=== PATIENT | male | born 1990 | race Caucasian/White ===

== ENCOUNTER 2017-05-02 07:47 | Emergency (ER) | payer OTHER ==
[~2017-05-02] VITALS: Ht 188 cm; Wt 95.5 kg
[2017-05-02] MEDS ORDERED: ISOVUE-370 76% 100ML VIAL (Q9967) ONE (07:48)
[2017-05-02] MEDS ORDERED: ATEN25TA (08:01)
[2017-05-02] MEDS ORDERED: SERT-155 (08:01)
[2017-05-02] MEDS ORDERED: ASPIRIN 81 MG CHEW TABLET PO ONE (08:30)
[2017-05-02 09:01] LABS: BASO # 0.1 10^3/uL (0.0-0.2); EOS # 0.1 10^3/uL (0.0-0.50); IMMATURE GRANULOCYTE % 0.4 % (0-0); LYMPH # 1.6 10^3/uL (1.5-6.5); LYMPH % 32.1 % (24.0-44.0); MEAN CORPUSCULAR HEMOGLOBIN 28.9 pg (27.0-33.0); MEAN CORPUSCULAR HGB CONC 33.9 g/dl (32.0-36.5); MEAN CORPUSCULAR VOLUME 85.1 fl (80.0-96.0); MONO # 0.4 10^3/uL (0.0-0.8); MONO % 7.8 % (0.0-5.0); NEUTROPHILS # 2.8 10^3/uL (1.8-7.7); NEUTROPHILS % 57.7 % (36.0-66.0); PLATELET COUNT, AUTOMATED 260 10^3/uL (150-450); RED CELL DISTRIBUTION WIDTH 11.8 % (11.5-14.5); WHITE BLOOD COUNT 4.9 10^3/uL (4.0-10.0)
[2017-05-02 09:29] LABS: ALBUMIN 4.1 GM/DL (3.2-5.2); ALBUMIN/GLOBULIN RATIO 1.41 (1.00-1.93); ALKALINE PHOSPHATASE 102 U/L (45-117); ALT/SGPT 34 U/L (12-78); ANION GAP 7 MEQ/L (8-16); AST/SGOT 24 U/L (15-37); BILIRUBIN,DIRECT 0.1 MG/DL (0.0-0.2); BILIRUBIN,TOTAL 0.4 MG/DL (0.2-1.0); BLOOD UREA NITROGEN 15 MG/DL (7-18); CALCIUM LEVEL 8.9 MG/DL (8.5-10.1); CARBON DIOXIDE LEVEL 27 MEQ/L (21-32); CHLORIDE LEVEL 107 MEQ/L (98-107); CREATININE FOR GFR 1.14 MG/DL (0.70-1.30); GLOMERULAR FILTRATION RATE > 60.0 (>60); GLUCOSE, FASTING 98 MG/DL (70-105); POTASSIUM SERUM 4.2 MEQ/L (3.5-5.1); SODIUM LEVEL 141 MEQ/L (136-145)
--- NOTE | 2017-05-02 10:40 | REP ---
CT ANGIO CHEST: CT angiogram of the chest is performed. TECHNIQUE: Axial contrast enhanced images from the thoracic inlet to the upper abdomen using 100 mL Isovue 370 intravenous contrast material with multiplanar reformations. There is an ill-defined 5 mm opacity in the right upper lobe, which is somewhat oval in shape and probably represents focal fibroatelectatic change. No consolidating infiltrate is seen in either lung. There is no CT evidence of a pulmonary embolism. There is no thoracic aortic aneurysm or dissection. The heart is normal in size. There is no pleural or pericardial effusion. There is no mediastinal or hilar adenopathy. The visualized upper abdominal structures are unremarkable. IMPRESSION: No CT evidence of pulmonary embolism. There appears to be mild focal fibroatelectatic change in the right upper lobe. Signed by Rolando Mak MD 05/02/2017 07:50 P
[2017-05-02 12:38] VITALS: BP 127/67
--- NOTE | 2017-05-02 20:46 | ECGEPIP ---
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
--- NOTE | 2017-05-02 20:46 | ECGEPIP ---
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
--- NOTE | 2017-05-02 20:53 | ECGEPIP ---
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
== END 2017-05-02 12:51 | disposition home or self-care (01) ==
LOC: M ED 07:47
DX: R07.9 Chest pain, unspecified (principal); R00.2 Palpitations; R06.02 Shortness of breath; R11.0 Nausea; F41.9 Anxiety disorder, unspecified; F33.9 Major depressive disorder, recurrent, unspecified; I34.0 Nonrheumatic mitral (valve) insufficiency; I49.3 Ventricular premature depolarization; Z82.49 Family history of ischemic heart disease and other diseases of the circulatory system; Z79.899 Other long term (current) drug therapy
CPT/HCPCS: 36415; 71275; 80048; 80076; 82550; 82553; 83880; 85025; 93005; 93041; 94760; 99285; Q9967

== ENCOUNTER 2017-05-08 19:07 | Emergency (ER) | payer OTHER ==
[~2017-05-08] VITALS: Ht 188 cm; Wt 95.5 kg
[~2017-05-08 19:07] MED LIST: ATEN25TA; SERT-155
[2017-05-08 22:44] VITALS: BP 132/58
--- NOTE | 2017-05-10 05:59 | ECGEPIP ---
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
== END 2017-05-08 22:45 | disposition home or self-care (01) ==
LOC: M ED 19:07
DX: R07.89 Other chest pain (principal); R06.02 Shortness of breath; F33.9 Major depressive disorder, recurrent, unspecified; I34.0 Nonrheumatic mitral (valve) insufficiency; I49.3 Ventricular premature depolarization

== ENCOUNTER 2017-06-04 07:25 | Emergency (ER) | payer OTHER ==
[~2017-06-04] VITALS: Ht 188 cm; Wt 97.6 kg
[2017-06-04 08:17] VITALS: BP 120/63
--- NOTE | 2017-06-04 09:18 | ECGEPIP ---
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
== END 2017-06-04 09:23 | disposition home or self-care (01) ==
LOC: M ED 07:25
DX: R07.9 Chest pain, unspecified (principal)

== ENCOUNTER 2018-03-16 02:32 | Emergency (ER) | payer OTHER ==
[2018-03-16 03:36] LABS: ANION GAP 9 MEQ/L (8-16); BLOOD UREA NITROGEN 17 MG/DL (7-18); CALCIUM LEVEL 8.9 MG/DL (8.5-10.1); CARBON DIOXIDE LEVEL 26 MEQ/L (21-32); CHLORIDE LEVEL 108 MEQ/L (98-107); CK-MB VALUE MASS 2.1 NG/ML (<3.6); CPK CREATINE PHOSPHOKINASE 393 U/L (39-308); CREATININE FOR GFR 1.11 MG/DL (0.70-1.30); GLOMERULAR FILTRATION RATE > 60.0 (>60); GLUCOSE, FASTING 76 MG/DL (70-100); MB/CK RELATIVE INDEX 0.53 (< OR =4); POTASSIUM SERUM 3.4 MEQ/L (3.5-5.1); SODIUM LEVEL 143 MEQ/L (136-145); TROPONIN I < 0.02 NG/ML (< 0.10)
[2018-03-16 03:48] LABS: ABG BASE EXCESS -1.2 (-2.0-2.0); ABG HCO3 24.4 MEQ/L (22.0-26.0); ABG O2 SATURATION 97.2 % (95.0-99.0); ABG PARTIAL PRESSURE CO2 44.3 mmHg (35.0-45.0); ABG PARTIAL PRESSURE O2 95.1 mmHg (75.0-100.0); ABG STANDARD HCO3 23.4 MEQ/L (22.0-26.0); ABG TOTAL CO2 25.8 MEQ/L (22.0-29.0); ABG pH (ARTERIAL) 7.359 UNITS (7.350-7.450)
[2018-03-16] MEDS: POTASSIUM CHLORIDE 10 MEQ SR TABLET PO (04:07)
== END 2018-03-16 04:16 | disposition home or self-care (01) ==
LOC: M ED 02:32
DX: R07.89 Other chest pain (principal); E87.6 Hypokalemia; I34.0 Nonrheumatic mitral (valve) insufficiency; F41.9 Anxiety disorder, unspecified
CPT/HCPCS: 71045